=== PATIENT | female | born 1935 | race Caucasian/White ===

== ENCOUNTER 2022-06-14 13:44 | Emergency (ER) | payer MEDICARE, OTHER ==
[~2022-06-14 13:44] MED LIST: CELEBREX200 MG PO; CELECOXIB200 MG PO; DULOXETINE HCL20 MG PO; HYDROCODON-ACE1 EAC2 PO; NORCO 7.5-3251 EACH PO; SAVELLA12.5 MG PO; SAVELLA25 MG PO
[2022-06-14 14:32] LABS: BASOPHIL 0.5 % (0-2); EOSINOPHIL 0.7 % (0-7); HCT 39.3 % (37.0-47.0); HGB 12.7 g/dl (12.5-16.0); LYMPHOCYTE 31.3 % (15-48); MCH 29.9 pg (25.0-31.0); MCHC 32.3 g/dL (32.0-36.0); MCV 92.5 fL (78.0-100.0); MONOCYTE 17.2 % (0-12); MPV 10.1 fL (6.0-9.5); NEUTROPHIL 48.6 % (41-80); NRBC 0; PLT 229 K/uL (150-400); RBC 4.25 M/uL (4.20-5.40); RDW 12.8 % (11.5-14.0)
[2022-06-14 15:02] LABS: INR 0.99 (0.9-1.2); PROTHROMBIN TIME 12.8 SECONDS (11.9-13.9); PTT 27.3 SECONDS (24.9-34.6)
[2022-06-14 15:53] LABS: PHOSPHORUS 3.8 mg/dL (2.6-4.7)
[2022-06-14 16:32] LABS: ALBUMIN 3.1 g/dL (3.4-5.0); BILIRUBIN - TOTAL 0.3 mg/dL (0.2-1.0); BUN/CREAT RATIO (CALC) 29.2 RATIO; CREATININE 1.13 mg/dL (0.51-0.95); GLOBULIN (CALCULATION) 3.2 g/dL; POTASSIUM 4.1 mmol/L (3.5-5.1); TOTAL PROTEIN 6.3 g/dL (6.4-8.2)
[2022-06-14 16:47] LABS: BACTERIA 1+; BILIRUBIN NEGATIVE (NEGATIVE); BLOOD NEGATIVE Ery/uL (NEGATIVE); CLARITY CLEAR (CLEAR); COLOR YELLOW (YELLOW); GLUCOSE (U) NORMAL (NORMAL); LEUKOCYTES 1+ Leu/uL (NEGATIVE); NITRITE NEGATIVE (NEGATIVE); PROTEIN NEGATIVE (NEGATIVE); UROBILINOGEN 0.2 mg/dL (0.2-1.0)
[2022-06-14] MEDS ORDERED: ONDANSETRON ODT4 MG PO (18:49)
== END 2022-06-14 19:15 | disposition home or self-care (01) ==
LOC: FER 13:44
PROVIDERS: Emergency Medicine
DX: R55 Syncope and collapse (principal); R53.1 Weakness; J44.9 Chronic obstructive pulmonary disease, unspecified; I10 Essential (primary) hypertension; Z88.5 Allergy status to narcotic agent; Z88.8 Allergy status to other drugs, medicaments and biological substances
CPT/HCPCS: 36415; 70450; 71045; 80053; 81001; 83735; 83880; 84100; 84484; 85025; 85610; 85730; 93005; J2405